=== PATIENT | female | born 2000 | race Caucasian/White ===

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

== ENCOUNTER 2021-01-22 09:59 | Emergency (ER) | payer OTHER | END 2021-01-22 10:21 | disposition home or self-care (01) | LOC: ER 09:59 | DX: J32.9 Chronic sinusitis, unspecified (principal); F17.210 Nicotine dependence, cigarettes, uncomplicated; Z88.0 Allergy status to penicillin; Z79.899 Other long term (current) drug therapy ==

== ENCOUNTER 2021-01-24 10:06 | Emergency (ER) | payer OTHER ==
[~2021-01-24] VITALS: Ht 162.6 cm; Wt 77.1 kg
[~2021-01-24 10:06] MED LIST changes: +Benadryl25 MG PO; +DOXY100 PO; +GABA300 PO; +METR500 PO; +MONDOXYNE NL100 MG PO; +PROP10 PO; +PSEUDOEPHEDRINE30 M1 PO; +Prilosec Otc20 MG PO; +Vibramycin100 MG PO; +ZOLOFT50 MG PO; +Zofran Odt4 MG PO
== END 2021-01-24 11:31 | disposition home or self-care (01) ==
LOC: ER 10:06
DX: S93.401A Sprain of unspecified ligament of right ankle, initial encounter (principal); M25.561 Pain in right knee; R10.32 Left lower quadrant pain; F17.210 Nicotine dependence, cigarettes, uncomplicated; Z88.0 Allergy status to penicillin; Z79.899 Other long term (current) drug therapy; W06.XXXA Fall from bed, initial encounter
CPT/HCPCS: 73562-RT; 73610; 99283-25; A9270; J1885

== ENCOUNTER 2021-04-15 21:53 | Emergency (ER) | payer OTHER ==
[~2021-04-15] VITALS: Ht 162.6 cm; Wt 82.1 kg
[2021-04-15 23:35] LABS: BASOPHILS ABSOLUTE AUTO 0.05 K/mm3 (0.00-0.23); BASOPHILS PERCENT AUTO 1 % (0-2); EOSINOPHILS ABSOLUTE AUTO 0.06 K/mm3 (0.00-0.68); EOSINOPHILS PERCENT AUTO 1 % (0-6); Hematocrit 41.1 % (33.0-51.0); Hemoglobin 13.8 g/dL (11.5-16.0); IMMATURE GRAN ABSOLUTE AUTO 0.02 K/mm3 (0.00-0.10); IMMATURE GRAN PERCENT AUTO 0 % (0-1); LYMPHOCYTES ABSOLUTE AUTO 2.41 K/mm3 (0.84-5.20); LYMPHOCYTES PERCENT AUTO 34 % (21-46); MONOCYTES ABSOLUTE AUTO 0.48 K/mm3 (0.16-1.47); MONOCYTES PERCENT AUTO 7 % (4-13); Mean Corpuscular HGB 29.8 pg (26.0-34.0); Mean Corpuscular HGB Conc 33.6 g/dL (31.5-36.5); Mean Corpuscular Volume 89 fL (80-100); Mean Platelet Volume 10.1 fL (9.1-12.4); NEUTROPHILS ABSOLUTE AUTO 4.16 K/mm3 (1.96-9.15); NEUTROPHILS PERCENT AUTO 58 % (41-73); Platelet Count 231 K/mm3 (150-400); RDW Coefficient Variation 13.2 % (11.7-14.2); RDW Standard Deviation 42.5 fL (35.1-46.3); Red Blood Cell Count 4.63 M/mm3 (3.80-5.20); White Blood Cell Count 7.18 K/mm3 (4.00-11.30)
[2021-04-15 23:53] LABS: Alanine Aminotransfer (ALT/SGP 25 U/L (12-78); Albumin, Blood 3.9 g/dL (3.4-5.0); Albumin/Globulin Ratio 1.2 (0.8-1.8); Alk Phos 79 U/L (50-136); Anion Gap 5 mmol/L (6-16); Aspartate Aminotrans (AST/SGOT 16 U/L (12-37); Bilirubin, Total 0.3 mg/dL (0.1-1.0); Blood Urea Nitrogen 7 mg/dL (8-24); Bun/Creatinine Ratio 10.4 (12.0-20.0); CO2, Blood 28 mmol/L (21-32); Calcium, Blood 9.3 mg/dL (8.5-10.1); Chloride, Blood 109 mmol/L (98-108); Creatinine, Blood 0.68 mg/dL (0.40-1.00); Globulin, Blood 3.3 g/dL (2.2-4.0); Glomerular Filtration Rate >60 (60-); Glucose, Blood 97 mg/dL (70-99); Potassium, Blood 3.3 mmol/L (3.5-5.5); Sodium, Blood 142 mmol/L (136-145); Total Protein, Blood 7.2 g/dL (6.4-8.2)
[2021-04-15] MEDS ORDERED: Seroquel Xr50 MG PO (23:54)
[2021-04-16] MEDS ORDERED: IBUP600 PO (00:14)
== END 2021-04-16 00:41 | disposition home or self-care (01) ==
LOC: ER 21:53
PROVIDERS: Physician Assistant
DX: N83.202 Unspecified ovarian cyst, left side (principal); F17.210 Nicotine dependence, cigarettes, uncomplicated; Z88.0 Allergy status to penicillin; Z79.899 Other long term (current) drug therapy
CPT/HCPCS: 76830; 76856; 80053; 81025; 85025; 99284-25; A9270

== ENCOUNTER 2021-09-10 22:27 | Emergency (ER) | payer OTHER ==
[~2021-09-10] VITALS: Ht 162.6 cm; Wt 68.0 kg
[~2021-09-10 22:27] MED LIST changes: +Seroquel Xr50 MG PO
[2021-09-10 22:50] LABS: BASOPHILS ABSOLUTE AUTO 0.07 K/mm3 (0.00-0.23); BASOPHILS PERCENT AUTO 1 % (0-2); EOSINOPHILS ABSOLUTE AUTO 0.22 K/mm3 (0.00-0.68); EOSINOPHILS PERCENT AUTO 3 % (0-6); Hemoglobin 14.3 g/dL (11.5-16.0); IMMATURE GRAN ABSOLUTE AUTO 0.01 K/mm3 (0.00-0.10); IMMATURE GRAN PERCENT AUTO 0 % (0-1); LYMPHOCYTES ABSOLUTE AUTO 2.85 K/mm3 (0.84-5.20); LYMPHOCYTES PERCENT AUTO 39 % (21-46); MONOCYTES ABSOLUTE AUTO 0.48 K/mm3 (0.16-1.47); MONOCYTES PERCENT AUTO 7 % (4-13); Mean Corpuscular HGB 28.7 pg (26.0-34.0); Mean Corpuscular HGB Conc 31.8 g/dL (31.5-36.5); Mean Corpuscular Volume 90 fL (80-100); Mean Platelet Volume 9.8 fL (9.1-12.4); NEUTROPHILS ABSOLUTE AUTO 3.66 K/mm3 (1.96-9.15); NEUTROPHILS PERCENT AUTO 50 % (41-73); Platelet Count 230 K/mm3 (150-400); RDW Coefficient Variation 13.7 % (11.7-14.2); RDW Standard Deviation 45.4 fL (35.1-46.3); Red Blood Cell Count 4.99 M/mm3 (3.80-5.20); White Blood Cell Count 7.29 K/mm3 (4.00-11.30)
[2021-09-10 22:51] LABS: Source, Urine Clean Catch
[2021-09-10 22:54] LABS: Bilirubin, Urine Neg (Neg); Blood, Urine 5+ (Neg); Glucose Qualitative, Urine Neg (Neg); Ketones, Urine Neg (Neg); Leukocyte Esterase, Urine 1+ (Neg); Nitrite, Urine Pos (Neg); Protein, Urine Neg (Neg); Urobilinogen, Urine NORM (Normal)
[2021-09-10 22:55] LABS: Appearance, Urine Hazy (Clear); Color, Urine Yellow (P-Yellow)
[2021-09-10 22:59] LABS: Amorphous Heavy (0-Heavy); Bacteria Mod /hpf; Red Blood Cells, Urine Rare /hpf (0-2); Squamous Epithelial Cells Rare /hpf (Few)
[2021-09-10 23:09] LABS: Alanine Aminotransfer (ALT/SGP 19 U/L (12-78); Albumin, Blood 4.1 g/dL (3.4-5.0); Albumin/Globulin Ratio 1.2 (0.8-1.8); Alk Phos 95 U/L (50-136); Anion Gap 5 mmol/L (6-16); Aspartate Aminotrans (AST/SGOT 14 U/L (12-37); Bilirubin, Total 0.1 mg/dL (0.1-1.0); Blood Urea Nitrogen 8 mg/dL (8-24); Bun/Creatinine Ratio 10.8 (12.0-20.0); CO2, Blood 26 mmol/L (21-32); Calcium, Blood 9.4 mg/dL (8.5-10.1); Chloride, Blood 108 mmol/L (98-108); Creatinine, Blood 0.74 mg/dL (0.40-1.00); Globulin, Blood 3.5 g/dL (2.2-4.0); Glomerular Filtration Rate >60 (60-); Glucose, Blood 96 mg/dL (70-99); Potassium, Blood 3.8 mmol/L (3.5-5.5); Sodium, Blood 139 mmol/L (136-145); Total Protein, Blood 7.6 g/dL (6.4-8.2)
[2021-09-11] MEDS ORDERED: Macrobid 100 M100 MG PO (01:27)
== END 2021-09-11 01:35 | disposition home or self-care (01) ==
LOC: ER 22:27
PROVIDERS: Emergency Medicine
DX: N83.202 Unspecified ovarian cyst, left side (principal); N83.201 Unspecified ovarian cyst, right side; N39.0 Urinary tract infection, site not specified; Z88.0 Allergy status to penicillin; F17.210 Nicotine dependence, cigarettes, uncomplicated; Z79.899 Other long term (current) drug therapy
CPT/HCPCS: 36415; 76830; 76856; 80053; 81001; 83690; 85025; 87077; 87086; 87186; A9270

== ENCOUNTER 2021-09-19 18:13 | Emergency (ER) | payer OTHER ==
[~2021-09-19 18:13] MED LIST changes: +Macrobid 100 M100 MG PO
[2021-12-15] MEDS ORDERED: SULTRIDS PO (22:25)
[2021-12-15] MEDS ORDERED: ONDA4ODT MM (22:27)
[2021-12-16] MEDS ORDERED: FLUC200 PO (14:15)
[2021-12-16] MEDS ORDERED: DOXY100 PO (14:20)
== END 2021-09-19 19:40 | disposition left against medical advice (07) ==
LOC: ER 18:13
DX: Z53.21 Procedure and treatment not carried out due to patient leaving prior to being seen by health care provider (principal)

== ENCOUNTER 2021-10-03 21:19 | Inpatient (IN) | payer OTHER ==
[~2021-10-03] VITALS: Ht 162.6 cm; Wt 65.8 kg
[2021-10-03 21:52] LABS: BASOPHILS ABSOLUTE AUTO 0.06 K/mm3 (0.00-0.23); BASOPHILS PERCENT AUTO 1 % (0-2); EOSINOPHILS ABSOLUTE AUTO 0.11 K/mm3 (0.00-0.68); EOSINOPHILS PERCENT AUTO 2 % (0-6); Hematocrit 39.9 % (33.0-51.0); Hemoglobin 13.7 g/dL (11.5-16.0); IMMATURE GRAN ABSOLUTE AUTO 0.01 K/mm3 (0.00-0.10); IMMATURE GRAN PERCENT AUTO 0 % (0-1); LYMPHOCYTES ABSOLUTE AUTO 1.86 K/mm3 (0.84-5.20); LYMPHOCYTES PERCENT AUTO 25 % (21-46); MONOCYTES ABSOLUTE AUTO 0.48 K/mm3 (0.16-1.47); MONOCYTES PERCENT AUTO 6 % (4-13); Mean Corpuscular HGB 29.5 pg (26.0-34.0); Mean Corpuscular HGB Conc 34.3 g/dL (31.5-36.5); Mean Corpuscular Volume 86 fL (80-100); Mean Platelet Volume 9.8 fL (9.1-12.4); NEUTROPHILS ABSOLUTE AUTO 4.97 K/mm3 (1.96-9.15); NEUTROPHILS PERCENT AUTO 66 % (41-73); Platelet Count 322 K/mm3 (150-400); RDW Coefficient Variation 12.9 % (11.7-14.2); RDW Standard Deviation 40.3 fL (35.1-46.3); Red Blood Cell Count 4.65 M/mm3 (3.80-5.20); White Blood Cell Count 7.49 K/mm3 (4.00-11.30)
[2021-10-03 22:00] LABS: Source, Urine Clean Catch
[2021-10-03 22:02] LABS: Blood, Urine 5+ (Neg); Glucose Qualitative, Urine Neg (Neg); Ketones, Urine 1+ (Neg); Leukocyte Esterase, Urine 1+ (Neg); Nitrite, Urine Neg (Neg); Protein, Urine 1+ (Neg); Urobilinogen, Urine 3+ (Normal)
[2021-10-03 22:05] LABS: Appearance, Urine Hazy (Clear); Bilirubin, Urine 1+ (Neg); Color, Urine Yellow (P-Yellow)
[2021-10-03 22:10] LABS: Alanine Aminotransfer (ALT/SGP 85 U/L (12-78); Albumin, Blood 3.7 g/dL (3.4-5.0); Albumin/Globulin Ratio 0.8 (0.8-1.8); Alk Phos 181 U/L (50-136); Anion Gap 7 mmol/L (6-16); Aspartate Aminotrans (AST/SGOT 72 U/L (12-37); Bilirubin, Total 0.5 mg/dL (0.1-1.0); Blood Urea Nitrogen 13 mg/dL (8-24); Bun/Creatinine Ratio 20.8 (12.0-20.0); CO2, Blood 28 mmol/L (21-32); Calcium, Blood 9.7 mg/dL (8.5-10.1); Chloride, Blood 104 mmol/L (98-108); Creatinine, Blood 0.63 mg/dL (0.40-1.00); Globulin, Blood 4.5 g/dL (2.2-4.0); Glomerular Filtration Rate >60 (60-); Glucose, Blood 98 mg/dL (70-99); Potassium, Blood 4.1 mmol/L (3.5-5.5); Sodium, Blood 139 mmol/L (136-145); Total Protein, Blood 8.2 g/dL (6.4-8.2)
[2021-10-03 22:28] LABS: Amorphous Mod (0-Heavy); Bacteria Few /hpf; Mucus Mod (0-Heavy); Red Blood Cells, Urine 0-2 /hpf (0-2); Squamous Epithelial Cells Not Seen /hpf (Few)
--- NOTE | 2021-10-04 03:59 | NUR ---
ADMITTED THIS PT. FROM ED, SERVICE DOG & GRANDNIURKA CAME IN TO THE UNIT WITH THE PT. ALLOWED AT THE ED. THE DOG HELPS PT. WITH HER ANXIETY, GRANDNIURKA HELPS WITH TAKING CARE OF THE DOG. ORIENTED PT TO ROOM, ADVISED TO USE CALL LIGHT FOR ANY NEED OF HELP, PT. VERBALIZED UNDERSTANDING, CLWR.NEEDS ATTENDED TO.NO ACUTE CHANGES NOTED. ABDOMEN CLEANED WITH CHLORHEXIDINE WIPES, PT.TOLERATED WELL.
[2021-10-04 05:15] LABS: Influenza A, PCR NEGATIVE (NEGATIVE); Influenza B, PCR NEGATIVE (NEGATIVE); Resp Syncytial Virus, PCR NEGATIVE (NEGATIVE); SARS-Cov-2 (COVID-19) PCR, MMC NEGATIVE (NEGATIVE)
--- NOTE | 2021-10-04 08:45 | NUR ---
PATIENT TO OR PATIENT UP TO VOID, HOSPITAL GOWN PUT ON, AND TRANSFERED TO [facility] INDEPENDENTLY. REFUSED TO REMOVE JEWLERY. TO OR VIA MELINDA Trimble/ OLVIN CANO.
--- NOTE | 2021-10-04 11:13 | NUR ---
PATIENT RETURNED TO ROOM FROM OR, TRASNFERED TO BED VIA SLIDER W/ 4 STAFF, EXCESS SHEETS REMOVED. X4 LAP SITES W/ DERMABOND & STERI STRIPS, C/D/I. PATIENT REPORTS ABD TO BE TENDER TO TOUCH, 9/10 PAIN. WILL MEDICATE PER EMAR. TEARFUL AT THIS TIME STATING "I JUST WANT TO SEE MY DOG". CALL LIGHT IN REACH.
--- NOTE | 2021-10-04 12:32 | NUR ---
1215 TO ROOM TO CHECK ON PATIENT. PER PATIENTS GRANDMOTHER PT WALKED OUTSIDE TO SMOKE. PER GRANDMOTHER PATIENT REQUESTS DISCHARGE TO HOME. DR ANN NOTIFIED AND OK TO DISCHARGE PATIENT
--- NOTE | 2021-10-04 12:35 | NUR ---
1225 PT RETURNED TO ROOM, TYLENOL GIVEN PER REQUEST. PT STATES DID FINE WALKING OUTSIDE AND WOULD LIKE TO BE DISCHARGED
[2021-10-04] MEDS ORDERED: OXYC10TA19 PO (12:44)
--- NOTE | 2021-10-04 13:48 | NUR ---
DISCHARGE VSS ON RA, TOLERATING PO INTAKE, DENIES N/V, DENIES PAIN, PATIENT VOIDING, & AMBULATING WELL INDEPENDENTLY. DISCUSSED DISCHARGE INSTRUCTIONS W/ PATIENT AND FAMILY MEMBER AT BEDSIDE. SENT RX WITH PATIENT. PATIENT DECLINED WHEELCHAIR, AMBULATED OUT.
== END 2021-10-04 13:48 | disposition home or self-care (01) | DRG 419 ==
LOC: ER 21:19 → SURS 10-04 02:03
PROVIDERS: Student in an Organized Health Care Education/Training Program; Surgery; ADMIT Surgery
PROC: BF141ZZ Fluoroscopy of Gallbladder, Bile Ducts and Pancreatic Ducts using Low Osmolar Contrast (ICD-10-PCS; 2021-10-04)
PROC: 0FT44ZZ Resection of Gallbladder, Percutaneous Endoscopic Approach (ICD-10-PCS; principal; 2021-10-04 08:45)
DX: K80.00 Calculus of gallbladder with acute cholecystitis without obstruction (principal); F43.10 Post-traumatic stress disorder, unspecified; Z20.822 Contact with and (suspected) exposure to COVID-19; F17.210 Nicotine dependence, cigarettes, uncomplicated; F41.9 Anxiety disorder, unspecified; F32.A Depression, unspecified; Z90.89 Acquired absence of other organs; Z98.890 Other specified postprocedural states; Z88.0 Allergy status to penicillin; Z79.899 Other long term (current) drug therapy
CPT/HCPCS: 0241U; 36415; 74300; 76705; 80053; 81001; 83690; 85025; 87086; 88304; 96374; 99285-25; A9270; C1729; J0694; J1100; J1885; J2250; J2405; J2704; J3010; J7030; J7120

== ENCOUNTER 2022-06-16 18:03 | Emergency (ER) | payer OTHER ==
[~2022-06-16] VITALS: Ht 162.6 cm; Wt 68.0 kg
[~2022-06-16 18:03] MED LIST changes: +FLUC200 PO; +ONDA4ODT MM; +OXYC10TA19 PO
[2022-06-16 19:01] LABS: Source, Urine Clean Catch
[2022-06-16 19:09] LABS: BASOPHILS ABSOLUTE AUTO 0.05 K/mm3 (0.00-0.23); BASOPHILS PERCENT AUTO 1 % (0-2); EOSINOPHILS PERCENT AUTO 1 % (0-6); Hematocrit 43.2 % (33.0-51.0); Hemoglobin 14.6 g/dL (11.5-16.0); IMMATURE GRAN ABSOLUTE AUTO 0.03 K/mm3 (0.00-0.10); IMMATURE GRAN PERCENT AUTO 0 % (0-1); LYMPHOCYTES ABSOLUTE AUTO 2.56 K/mm3 (0.84-5.20); LYMPHOCYTES PERCENT AUTO 26 % (21-46); MONOCYTES ABSOLUTE AUTO 0.54 K/mm3 (0.16-1.47); MONOCYTES PERCENT AUTO 5 % (4-13); Mean Corpuscular HGB 29.8 pg (26.0-34.0); Mean Corpuscular HGB Conc 33.8 g/dL (31.5-36.5); Mean Corpuscular Volume 88 fL (80-100); Mean Platelet Volume 9.3 fL (9.1-12.4); NEUTROPHILS ABSOLUTE AUTO 6.65 K/mm3 (1.96-9.15); NEUTROPHILS PERCENT AUTO 67 % (41-73); Platelet Count 276 K/mm3 (150-400); RDW Standard Deviation 42.5 fL (35.1-46.3); White Blood Cell Count 9.93 K/mm3 (4.00-11.30)
[2022-06-16 19:09] LABS: Appearance, Urine Hazy (Clear); Bilirubin, Urine Neg (Neg); Blood, Urine 3+ (Neg); Color, Urine Yellow (P-Yellow); Glucose Qualitative, Urine Neg (Neg); Ketones, Urine Neg (Neg); Leukocyte Esterase, Urine 1+ (Neg); Nitrite, Urine Neg (Neg); Protein, Urine Neg (Neg); Specific Gravity, Urine 1.015 (1.003-1.022); Urobilinogen, Urine NORM (Normal)
[2022-06-16 19:16] LABS: Amorphous Light (0-Heavy); Bacteria Many /hpf; Hyaline Casts 0-2 /lpf (0-2); Squamous Epithelial Cells Mod /hpf (Few); Transitional Epithelial Cells Rare /hpf (0-Rare)
[2022-06-16 19:31] LABS: Albumin, Blood 3.8 g/dL (3.4-5.0); Bilirubin, Total 0.3 mg/dL (0.1-1.0); Bun/Creatinine Ratio 11.4 (12.0-20.0); Calcium, Blood 9.5 mg/dL (8.5-10.1); Creatinine, Blood 0.7 mg/dL (0.40-1.00); Globulin, Blood 3.8 g/dL (2.2-4.0); Potassium, Blood 3.9 mmol/L (3.5-5.5); Total Protein, Blood 7.6 g/dL (6.4-8.2)
[2022-06-17] MEDS ORDERED: Zithromax250 MG PO (01:09)
== END 2022-06-17 02:10 | disposition home or self-care (01) ==
LOC: ER 18:03
PROVIDERS: Student in an Organized Health Care Education/Training Program
DX: H66.91 Otitis media, unspecified, right ear (principal); R10.2 Pelvic and perineal pain; F17.210 Nicotine dependence, cigarettes, uncomplicated; Z88.0 Allergy status to penicillin
CPT/HCPCS: 36415; 76830; 76856; 80053; 81001; 81025; 83690; 85025; 87077; 87086; 87186

== ENCOUNTER 2022-10-07 16:09 | Observation (INO) | payer OTHER ==
[~2022-10-07] VITALS: Ht 162.6 cm; Wt 56.7 kg
[~2022-10-07 16:09] MED LIST changes: +Zithromax250 MG PO; +Zovirax800 MG PO
[2022-10-07] MEDS ORDERED: ACYC200 (18:34)
[2022-10-07] MEDS ORDERED: ACYCLOVIR400 MG (18:35)
[2022-10-07 22:05] LABS: Source, Urine Clean Catch
[2022-10-07 22:19] LABS: Influenza A, PCR NEGATIVE (NEGATIVE); Influenza B, PCR NEGATIVE (NEGATIVE); Resp Syncytial Virus, PCR NEGATIVE (NEGATIVE); SARS-Cov-2 (COVID-19) PCR, MMC NEGATIVE (NEGATIVE)
[2022-10-07 22:23] LABS: Appearance, Urine Cloudy (Clear); Bilirubin, Urine Neg (Neg); Blood, Urine 1+ (Neg); Color, Urine Yellow (P-Yellow); Glucose Qualitative, Urine Neg (Neg); Ketones, Urine Neg (Neg); Leukocyte Esterase, Urine 3+ (Neg); Nitrite, Urine Neg (Neg); Protein, Urine 1+ (Neg); Urobilinogen, Urine NORM (Normal)
[2022-10-07 22:28] LABS: Acetaminophen, Random <2.0 ug/mL (10.0-30.0); BASOPHILS ABSOLUTE AUTO 0.05 K/mm3 (0.00-0.23); BASOPHILS PERCENT AUTO 1 % (0-2); EOSINOPHILS ABSOLUTE AUTO 0.07 K/mm3 (0.00-0.68); EOSINOPHILS PERCENT AUTO 1 % (0-6); Ethanol (Alcohol), Blood, Med <3 mg/dL; Hematocrit 40.7 % (33.0-51.0); Hemoglobin 13.9 g/dL (11.5-16.0); IMMATURE GRAN ABSOLUTE AUTO 0.02 K/mm3 (0.00-0.10); IMMATURE GRAN PERCENT AUTO 0 % (0-1); LYMPHOCYTES ABSOLUTE AUTO 1.71 K/mm3 (0.84-5.20); LYMPHOCYTES PERCENT AUTO 20 % (21-46); MONOCYTES ABSOLUTE AUTO 0.33 K/mm3 (0.16-1.47); MONOCYTES PERCENT AUTO 4 % (4-13); Mean Corpuscular HGB 29.9 pg (26.0-34.0); Mean Corpuscular HGB Conc 34.2 g/dL (31.5-36.5); Mean Corpuscular Volume 88 fL (80-100); Mean Platelet Volume 9.5 fL (9.1-12.4); NEUTROPHILS ABSOLUTE AUTO 6.34 K/mm3 (1.96-9.15); NEUTROPHILS PERCENT AUTO 74 % (41-73); Platelet Count 223 K/mm3 (150-400); RDW Standard Deviation 41.5 fL (35.1-46.3); Red Blood Cell Count 4.65 M/mm3 (3.80-5.20); Salicylate 2.5 mg/dL (2.8-20.0); White Blood Cell Count 8.52 K/mm3 (4.00-11.30)
[2022-10-07 22:38] LABS: Alanine Aminotransfer (ALT/SGP 32 U/L (12-78); Albumin, Blood 4.2 g/dL (3.4-5.0); Albumin/Globulin Ratio 1.2 (0.8-1.8); Alk Phos 76 U/L (50-136); Anion Gap 4 mmol/L (6-16); Aspartate Aminotrans (AST/SGOT 17 U/L (12-37); Bilirubin, Total 0.4 mg/dL (0.1-1.0); Blood Urea Nitrogen 6 mg/dL (8-24); Bun/Creatinine Ratio 9.7 (12.0-20.0); CO2, Blood 25 mmol/L (21-32); Calcium, Blood 9.4 mg/dL (8.5-10.1); Chloride, Blood 111 mmol/L (98-108); Creatinine, Blood 0.62 mg/dL (0.40-1.00); Globulin, Blood 3.4 g/dL (2.2-4.0); Glomerular Filtration Rate 129 (60-); Glucose, Blood 95 mg/dL (70-99); Potassium, Blood 3.7 mmol/L (3.5-5.5); Sodium, Blood 140 mmol/L (136-145); Total Protein, Blood 7.6 g/dL (6.4-8.2)
[2022-10-07 22:45] LABS: Bacteria Many /hpf; Red Blood Cells, Urine 0-2 /hpf (0-2); Squamous Epithelial Cells Mod /hpf (Few); White Blood Cells, Urine 50-100 /hpf (0-5)
[2022-10-07 23:04] LABS: U Benzodiazapine Screen DETECTED; U Cannabinoids Screen DETECTED
[2022-10-07 23:05] LABS: U Amphetamine Screen Not Detected; U Barbituate Screen Not Detected; U Buprenorphine Screen Not Detected; U Cocaine Screen Not Detected; U Methadone Screen Not Detected; U Methamphetamine Screen Not Detected; U Opiates Screen Not Detected; U Oxycodone Screen Not Detected; U Phencyclidine Screen Not Detected; U Propoxyphene Screen Not Detected
== END 2022-10-09 13:18 | disposition home or self-care (01) ==
LOC: ER 16:09 → EOR 16:10
PROVIDERS: ADMIT Student in an Organized Health Care Education/Training Program
DX: F32.A Depression, unspecified (principal); Z20.822 Contact with and (suspected) exposure to COVID-19; Z88.0 Allergy status to penicillin; F17.210 Nicotine dependence, cigarettes, uncomplicated
CPT/HCPCS: 0241U; 80053; 81001; 81025; 85025; 87077; 87086; 87147; 87186; 93005; 93010; 99285-25; A9270; G0378; G0480; J1790; Q3014

== ENCOUNTER → 2024-01-14 | Outpatient (CLI) | payer OTHER ==
[~2024-01-14] MED LIST changes: +ACYC200; +ACYCLOVIR400 MG
[2024-01-14 16:29] LABS: Bacterial Vaginosis PCR Positive (NEGATIVE); Candida Group, PCR DETECTED (NOT DETECT); Candida glabrata-krusei, PCR DETECTED (NOT DETECT)
== END ==
LOC: LAB 14:00 → LAB SHORT 14:00
PROVIDERS: Nurse Practitioner Family
DX: N76.0 Acute vaginitis (principal)
CPT/HCPCS: 87481; 87661; 87801

== ENCOUNTER → 2024-02-03 | Outpatient (CLI) | payer OTHER ==
[2024-02-03 19:34] LABS: Candida glabrata-krusei, PCR NOT DETECTED (NOT DETECT)
[2024-02-03 19:56] LABS: Bacterial Vaginosis PCR Positive (NEGATIVE); Candida Group, PCR DETECTED (NOT DETECT)
== END | disposition home or self-care (01) ==
LOC: LAB 16:37 → LAB SHORT 16:37
PROVIDERS: Nurse Practitioner Family
DX: B37.31 Acute candidiasis of vulva and vagina (principal)
CPT/HCPCS: 87481; 87661; 87801

== ENCOUNTER → 2025-04-20 | Outpatient (CLI) | payer OTHER | LOC: LAB 18:40 → LAB SHORT 18:40 | DX: N39.0 Urinary tract infection, site not specified (principal) | CPT/HCPCS: 87077; 87086; 87186 ==